=== PATIENT | female | born 1960 | race Two or more races ===

== ENCOUNTER → 2016-08-11 | Outpatient (CLI) | payer BC ==
--- NOTE | 2016-08-12 08:11 | WOMENS IMAGING REPORT ---
EXAM DESCRIPTION: BILAT SCREENING MAMMO W/CAD COMPLETED DATE/TIME: 08/11/2016 10:42 am REASON FOR STUDY: Z12.31 ROUTINE SCREENING MAMMO Z12.31 ENCNTR SCREEN MAMMOGRAM FOR MALIGNANT NEOPL ASM OF [place] COMPARISON: 2014 TECHNIQUE: Standard craniocaudal and mediolateral oblique views of each breast recorded using [employer] l acquisition. LIMITATIONS: None. FINDINGS: No masses, calcifications or architectural distortion. No areas of suspicion. Read with the assistance of CAD. .[facility] - R2 Cenova Version 1.3 .[facility] - R2 Cenova Version 1.3 .[facility] - R2 Cenova Version 2.4 .[facility] [place] - R2 Cenova Version 2.4 .COUNT INCLUDES THE [facility] - R2 [employer] Underwriter Version 9.2 BREAST DENSITY: b. There are scattered areas of fibroglandular density. BIRAD: 1 NEGATIVE RECOMMENDATION: ROUTINE SCREENING COMMENT: PATIENT NOTIFIED BY LETTER. The [employer] recommends an annual screening mammogram for women aged 40 years or over. Each patient will receive a reminder prior to the anniversary date of her mammogram. The [employer] (ACR) has developed recommendations for screening MRI of the breast s in certain patient populations, to be used in conjunction with mammography. Breast MRI surveillanc e may be appropriate for women with more than 20% lifetime risk of developing breast cancer as deter mined by genetic testing, significant family history of the disease, or history of mantle radiation f or Hodgkins Disease. ACR Practice Guidelines 2008. TECHNICAL DOCUMENTATION: FINDING NUMBER: (1) ASSESSMENT: (1) JOB ID: [id number] [employer]- All Rights Reserved
== END ==
LOC: WI 10:18
PROVIDERS: ATTEND Family Medicine
DX: Z12.31 Encounter for screening mammogram for malignant neoplasm of breast (principal)
CPT/HCPCS: 77067; G0202

== ENCOUNTER 2019-06-16 15:02 | Inpatient (IN) | payer BC ==
[2019-06-16] MEDS ORDERED: ACETAMINOPHEN 325 MG TABLET PO PRN (15:54)
[2019-06-16] MEDS ORDERED: NORMAL SALINE 1000 ML 1,000 ML IV PRN (15:54)
--- NOTE | 2019-06-16 16:54 | PDOC H&P ---
History of Present Illness Admission Date/PCP: 06/16/19 15:02 HARLEY BECERRA MD Patient complains of: Right flank pain acute renal failure History of Present Illness: DIAMOND BECERRA is a 58 year old female atient is complaining of significant right-sided flank pain radiating to the pelvic area since last 1 week is today's patient is feeling worse feeling nausea vomiting Patient also tried the Cipro Patient urine culture was negative Patient's today's urine persistence with some blood Patient denied any fever or chills Patient have a history of a renal cyst in the past Denied any history of kidney stone Patient's went to the [facility] and patient's creatinine was 3.42 patient's last creatinine was 0.[address] scan of the abdomen pelvis without contrast did not show any acute finding Past Surgical History Past Surgical History: Reports: Hysterectomy Social History Information Source: Patient Smoking Status: Never Smoker Electronic Cigarette use?: No Frequency of Alcohol Use: Social Hx Recreational Drug Use: No Hx Prescription Drug Abuse: No Family History Family History: None Parental Family History Reviewed: Yes Children Family History Reviewed: Yes Sibling(s) Family History Reviewed.: Yes Medication/Allergy Allergies/Adverse Reactions: No Known Allergies Allergy (Unverified 06/16/19 16:23) Review of Systems Constitutional: PRESENT: chills. ABSENT: fever(s), headache(s), weight gain, weight loss Eyes: ABSENT: visual disturbances Ears: ABSENT: hearing changes Cardiovascular: ABSENT: chest pain, dyspnea on exertion, edema, orthropnea, palpitations Respiratory: ABSENT: cough, hemoptysis Gastrointestinal: PRESENT: abdominal pain, nausea. ABSENT: constipation, diarrhea, hematemesis, hematochezia, vomiting Genitourinary: PRESENT: difficulty urinating. ABSENT: dysuria, hematuria Musculoskeletal: ABSENT: joint swelling Integumentary: ABSENT: rash, wounds Neurological: ABSENT: abnormal gait, abnormal speech, confusion, dizziness, focal weakness, syncope Psychiatric: ABSENT: anxiety, depression, homidical ideation, suicidal ideation Endocrine: ABSENT: cold intolerance, heat intolerance, menstrual abnormalities, polydipsia, polyuria Hematologic/Lymphatic: ABSENT: easy bleeding, easy bruising, lymphadenopathy Physical Exam Vital Signs: Intake & Output 06/15/19 06/16/19 06/17/19 06:59 06:59 06:59 Weight 59.421 kg General appearance: PRESENT: no acute distress, well-developed, well-nourished Head exam: PRESENT: atraumatic, normocephalic Eye exam: PRESENT: conjunctiva pink, EOMI, PERRLA. ABSENT: scleral icterus Ear exam: PRESENT: normal external ear exam Mouth exam: PRESENT: moist, tongue midline Neck exam: PRESENT: full ROM. ABSENT: carotid bruit, JVD, lymphadenopathy, thyromegaly Respiratory exam: PRESENT: clear to auscultation sunitha Cardiovascular exam: PRESENT: RRR. ABSENT: diastolic murmur, rubs, systolic murmur Pulses: PRESENT: normal dorsalis pedis pul, +2 pedal pulses bilateral Vascular exam: PRESENT: normal capillary refill GI/Abdominal exam: PRESENT: normal bowel sounds, soft. ABSENT: distended, guarding, mass, organolmegaly, rebound, tenderness Additonal comments: Right CVA tenderness Rectal exam: PRESENT: deferred Extremities exam: ABSENT: pedal edema Musculoskeletal exam: PRESENT: ambulatory Neurological exam: PRESENT: alert, awake, oriented to person, oriented to place, oriented to time, oriented to situation, CN II-XII grossly intact. ABSENT: motor sensory deficit Psychiatric exam: PRESENT: appropriate affect, normal mood. ABSENT: homicidal ideation, suicidal ideation Skin exam: PRESENT: dry, intact, warm. ABSENT: cyanosis, rash Assessment & Plan - Diagnosis (1) Right flank pain Is this a current diagnosis for this admission?: Yes Plan: Patient CT scan of the abdomen pelvis is negative patient of acute renal failure with the right-sided CVA tenderness will get the blood culture urine cultures will rule out any pyelonephritis versus other etiology Patient urine culture in the office was all negative But again patient start the Cipro last week (2) Acute renal failure Qualifiers: Acute renal failure type: unspecified Qualified Code(s): N17.9 - Acute kidney failure, unspecified Is this a current diagnosis for this admission?: Yes Plan: We will start the patient on IV fluid consult to Dr. Hakeem Garcia for further evaluations - Time Time Spent: 30 to 50 Minutes Medications reviewed and adjusted accordingly: Yes Anticipated discharge: Home Within: Other - Inpatient Certification Based on my medical assessment, after consideration of the patient's comorbidities, presenting symptoms, or acuity I expect that the services needed warrant INPATIENT care.: Yes I certify that my determination is in accordance with my understanding of Medicare's requirements for reasonable and necessary INPATIENT services [42 CFR 412.3e].: Yes Medical Necessity: Failure to Improve With Outpatient Therapy, Need Close Monitoring Due to Risk of Patient Decompensation, Need For IV Fluids, Need for IV Antibiotics Post Hospital Care: D/C [employer] Ste[employer] Operator Documentation - Plan Summary Plan Summary: Admit the patient's in the hospital Start on IV antibiotics The blood culture urine cultures get the ultrasound Discussed with the patient and the and the daughter regarding the patient's current conditions
[2019-06-16] MEDS: OXYCODONE-ACETAMINOPHEN 5-325 MG TABLET PO PRN (17:49)
[2019-06-16] MEDS ORDERED: CEFTRIAXONE 1 GM/D5W RTU 1 GM/50 ML RTUPB IV SCH (18:00)
[2019-06-16] MEDS ORDERED: MORPHINE SULFATE 10 MG/ML INJ IV PRN (19:39)
[2019-06-16] MEDS: FAMOTIDINE 20 MG TABLET PO SCH (21:07)
[2019-06-16] MEDS: NORMAL SALINE 1000 ML 1,000 ML IV PRN (21:07)
[2019-06-16 21:17] LABS: APPEARANCE,URINE CLEAR; BILIRUBIN,URINE NEGATIVE (NEGATIVE); COLOR,URINE STRAW; GLUCOSE, URINE NEGATIVE (NEGATIVE); KETONES,URINE NEGATIVE (NEGATIVE); LEUKOCYTE ESTERASE,URINE NEGATIVE (NEGATIVE); NITRITE,URINE NEGATIVE (NEGATIVE); PROTEIN,URINE NEGATIVE (NEGATIVE); URINE SPECIFIC GRAVITY 1.008; UROBILINOGEN,URINE NEGATIVE mg/dL (<2.0)
[2019-06-16] MEDS ORDERED: FAMOTIDINE 20 MG TABLET PO SCH (22:00)
[2019-06-17] MEDS: NORMAL SALINE 1000 ML 1,000 ML IV PRN (03:53)
[2019-06-17] MEDS: OXYCODONE-ACETAMINOPHEN 5-325 MG TABLET PO PRN (03:53)
[2019-06-17 05:45] LABS: ABSOLUTE EOSINOPHILS # (AUTO) 0.1 10^3/uL (0.0-0.6); ABSOLUTE LYMPHOCYTES (AUTO) 1.6 10^3/uL (0.5-4.7); ABSOLUTE MONOCYTES (AUTO) 0.5 10^3/uL (0.1-1.4); ABSOLUTE NEUT (AUTO) 6.1 10^3/uL (1.7-8.2); BASOPHILS % (AUTO) 0.3 % (0-2); EOSINOPHILS % (AUTO) 1.1 % (0-6); HEMATOCRIT 36.3 % (36.0-47.0); HEMOGLOBIN 12.3 g/dL (12.0-15.5); LYMPHOCYTES % (AUTO) 18.9 % (13-45); MEAN CORPUSCULAR HEMOGLOBIN 29.8 pg (27.0-33.4); MEAN CORPUSCULAR HGB CONC 33.9 g/dL (32.0-36.0); MEAN CORPUSCULAR VOLUME 88 fl (80-97); MONOCYTES % (AUTO) 6.4 % (3-13); PLATELET COUNT 207 10^3/uL (150-450); RED BLOOD COUNT 4.13 10^6/uL (3.72-5.28); RED CELL DISTRIBUTION WIDTH 12.4 % (11.5-14.0); SEGMENTED NEUTROPHILS % (AUTO) 73.3 % (42-78); TOTAL CELLS COUNTED % (AUTO) 100 %; WHITE BLOOD COUNT 8.4 10^3/uL (4.0-10.5)
[2019-06-17 05:54] LABS: ALKALINE PHOSPHATASE 63 U/L (38-126); ANION GAP 9 (5-19); ASPARTATE AMINO TRANSFERASE 27 U/L (14-36); BILIRUBIN,DIRECT 0.1 mg/dL (0.0-0.4); BILIRUBIN,TOTAL 0.4 mg/dL (0.2-1.3); BLOOD UREA NITROGEN 28 mg/dL (7-20); CALCIUM 8.3 mg/dL (8.4-10.2); CARBON DIOXIDE 23 mmol/L (22-30); CHLORIDE 111 mmol/L (98-107); GLUCOSE 84 mg/dL (75-110); TOTAL PROTEIN 5.5 g/dL (6.3-8.2)
[2019-06-17] MEDS: ONDANSETRON HCL INJ/PF 4 MG/2 ML SDV IV PRN (07:01)
--- NOTE | 2019-06-17 08:29 | RADIOLOGY REPORT (SQ) ---
EXAM DESCRIPTION: U/S ABDOMEN COMPLETE W/DOPPLER COMPLETED DATE/TIME: 06/17/2019 7:02 am REASON FOR STUDY: abdominal pain COMPARISON: None. TECHNIQUE: Dynamic and static grayscale images acquired of the abdomen and recorded on PACS. Additio nal selected color Doppler and spectral images recorded. Note: Study does not meet criteria for complete doppler/duplex scan LIMITATIONS: None. FINDINGS: PANCREAS: No masses. Visualized pancreatic duct normal caliber. LIVER: No discrete solid mass. 3.4 cm right hepatic lobe cyst. No intrahepatic ductal dilation. No rmal size and echogenicity. LIVER VASCULATURE: Normal directional flow of the main portal vein and hepatic veins. GALLBLADDER: No stones. Normal wall thickness. No pericholecystic fluid. ULTRASOUND-DETECTED BORDEN'S SIGN: Negative. INTRAHEPATIC DUCTS AND COMMON DUCT: CBD and intrahepatic ducts normal caliber. No filling defects. INFERIOR VENA CAVA: Normal flow. AORTA: No aneurysm. RIGHT KIDNEY: Normal in size measuring 10.8 cm. Normal echogenicity. No solid or suspicious mass es. No hydronephrosis. No calcifications. LEFT KIDNEY: Normal in size measuring 10.4 cm. Normal echogenicity. No solid or suspicious brianna s. No hydronephrosis. No calcifications. SPLEEN: Normal in size measuring 8.7 cm. No solid masses. PERITONEAL AND PLEURAL SPACES: No ascites or effusions. OTHER: No other significant finding. IMPRESSION: 3.4 cm right Hepatic cyst. Otherwise, unremarkable abdominal ultrasound. TECHNICAL DOCUMENTATION: JOB ID: [id number] [employer]- All Rights Reserved Reading location - IP/workstation name: [email or web address]
--- NOTE | 2019-06-17 09:42 | RADIOLOGY REPORT (SQ) ---
EXAM DESCRIPTION: CT LUMBAR SPINE WITHOUT COMPLETED DATE/TIME: 06/17/2019 9:10 am REASON FOR STUDY: back pain COMPARISON: 06/16/2019 TECHNIQUE: Axial images acquired through the lumbar spine without intravenous contrast. Images revi ewed with lung, soft tissue and bone windows. Reconstructed coronal and sagittal MPR images reviewed . All images stored on PACS. All CT scanners at this facility use dose modulation, iterative reconstruction, and/or weight based d osing when appropriate to reduce radiation dose to as low as reasonably achievable (ALARA). [facility]: Dose Right [facility]: CareDose [facility]: Dose Right [facility]: Teradose 4D [facility]: [employer] RADIATION DOSE: CT Rad equipment meets quality standard of care and radiation dose reduction techniq ues were employed. CTDIvol: 6.9 mGy. DLP: 193 mGy-cm. mGy. LIMITATIONS: None. FINDINGS: SEGMENTATION: 6 foy-tyl-hzoeskl vertebral bodies. Partial sacralization of the L6 vertebr al body with pseudoarthrosis on the right and associated subchondral sclerosis and osteophytosis. ALIGNMENT: Minimal grade 1 retrolisthesis of L1 on L2 VERTEBRAL BODIES: No fractures. No dislocation. No acute findings. DISCS: Tiny disc bulge at L1-2 and L4-5. No significant spinal canal stenosis. No significant neura l foraminal narrowing. FACETS, PEDICLES, TRANSVERSE PROCESSES: No evidence of pars defect or facet dislocation. No pedicle fracture. No significant lumbar facet arthropathy. HARDWARE: None in the spine. VISUALIZED RIBS: No fractures. SOFT TISSUES: No significant or acute finding in adjacent soft tissues. OTHER: No other significant finding. IMPRESSION: 1. NO EVIDENCE OF ACUTE BONY ABNORMALITY OF THE LUMBAR SPINE. 2. MINIMAL GRADE 1 RETROLISTHESIS OF L1 ON L2. 3. 6 [id number] LUMBAR VERTEBRAL BODIES. PARTIAL SACRALIZATION OF THE L6 VERTEBRAL BODY WITH P SEUDOARTHROSIS ON THE RIGHT AND ASSOCIATED DEGENERATIVE CHANGE. TECHNICAL DOCUMENTATION: JOB ID: [id number] Quality ID # [id number]: Final reports with documentation of one or more dose reduction techniques (e.g., Au tomated exposure control, adjustment of the mA and/or kV according to patient size, use of iterative reconstruction technique) 2010 [employer]- All Rights Reserved Reading location - IP/workstation name: [email or web address]
[2019-06-17] MEDS: LIDOCAINE 5% (700 MG) TRANSDERMAL ADH..PATCH TP SCH (10:30)
[2019-06-17] MEDS: DOCUSATE SODIUM 100 MG CAPSULE PO SCH (10:30)
--- NOTE | 2019-06-17 11:34 | RADIOLOGY REPORT (SQ) ---
EXAM DESCRIPTION: BONE SURVEY COMPLETE COMPLETED DATE/TIME: 06/17/2019 9:29 am REASON FOR STUDY: back pain/r/o mm COMPARISON: None. TECHNIQUE: Images of the axial and proximal appendicular skeleton are obtained, along with lateral s kull and frontal chest films. LIMITATIONS: None. FINDINGS: AP CHEST: No bony findings. Lungs are clear. LATERAL SKULL: No worrisome bone lesions. AP BOTH HUMERI: No worrisome bone lesions. TWO-VIEW LUMBAR SPINE: No worrisome bone lesions. TWO-VIEW THORACIC SPINE: No worrisome bone lesions. Anterolisthesis of L5 on S1. AP PELVIS: No worrisome bone lesions. AP BOTH FEMURS: No worrisome bone lesions. OTHER: No other significant finding. IMPRESSION: No worrisome bone lesions. Anterolisthesis of L5 on S1. TECHNICAL DOCUMENTATION: JOB ID: [id number] [employer]- All Rights Reserved Reading location - IP/workstation name: [email or web address]
--- NOTE | 2019-06-17 11:34 | PDOC PROGRESS REPORT ---
Subjective Progress Note for:: 06/17/19 Subjective:: Patient is still complaining of right flank pain Is tried the Percocet which helped but making nauseating and feeling dizzy Patient denied any abdominal pain Patient's denied any constipation's problems Is feeling chills No fever no white count Patient ultrasound of the abdomen and pelvis negative for acute finding except hepatic cyst Patient CT of the lumbar spine is negative for any acute findings except some arthritis changes Patient had a colonoscopy was done in 2008 due to the area anemia , Total hysterectomy Patient's brother have a history of the kidney cancer She is denied any chest pain no short of breath Reason For Visit: RT FLANK PAIN/RENAL FAILURE Physical Exam Vital Signs: Temp Pulse Resp BP Pulse Ox 98.8 F 60 20 121/54 L 99 06/17/19 00:02 06/17/19 00:02 06/17/19 00:02 06/17/19 00:02 06/17/19 00:02 Intake & Output 06/16/19 06/17/19 06/18/19 06:59 06:59 06:59 Intake Total 727 Output Total 400 Balance 327 Weight 59.3 kg General appearance: PRESENT: no acute distress, well-developed, well-nourished Head exam: PRESENT: atraumatic, normocephalic Eye exam: PRESENT: conjunctiva pink, EOMI, PERRLA. ABSENT: scleral icterus Ear exam: PRESENT: normal external ear exam Mouth exam: PRESENT: moist, tongue midline Neck exam: PRESENT: full ROM. ABSENT: carotid bruit, JVD, lymphadenopathy, thyromegaly Respiratory exam: PRESENT: clear to auscultation sunitha Cardiovascular exam: PRESENT: RRR. ABSENT: diastolic murmur, rubs, systolic murmur Pulses: PRESENT: normal dorsalis pedis pul, +2 pedal pulses bilateral Vascular exam: PRESENT: normal capillary refill GI/Abdominal exam: PRESENT: normal bowel sounds, soft. ABSENT: distended, guarding, mass, organolmegaly, rebound, tenderness Additonal comments: Right CVA tenderness Rectal exam: PRESENT: deferred Extremities exam: ABSENT: pedal edema Musculoskeletal exam: PRESENT: ambulatory Neurological exam: PRESENT: alert, awake, oriented to person, oriented to place, oriented to time, oriented to situation, CN II-XII grossly intact. ABSENT: motor sensory deficit Psychiatric exam: PRESENT: appropriate affect, normal mood. ABSENT: homicidal ideation, suicidal ideation Skin exam: PRESENT: dry, intact, warm. ABSENT: cyanosis, rash Results Laboratory Results: 06/17/19 04:44 06/17/19 04:44 06/16/19 06/17/19 06/17/19 20:48 04:44 04:44 WBC 8.4 RBC 4.13 Hgb 12.3 Hct 36.3 MCV 88 MCH 29.8 MCHC 33.9 RDW 12.4 Plt Count 207 Seg Neutrophils % 73.3 Sodium 143.0 Potassium 4.0 Chloride 111 H Carbon Dioxide 23 Anion Gap 9 BUN 28 H Creatinine 3.00 H Est GFR ( Amer) 20 L Glucose 84 Calcium 8.3 L Magnesium 2.3 Total Bilirubin 0.4 AST 27 Alkaline Phosphatase 63 Total Protein 5.5 L Albumin 3.0 L Urine Color STRAW Urine Appearance CLEAR Urine pH 5.0 Ur Specific [place] 1.008 Urine Protein NEGATIVE Urine Glucose (UA) NEGATIVE Urine Ketones NEGATIVE Urine Blood SMALL H Urine Nitrite NEGATIVE Ur Leukocyte Esterase NEGATIVE Urine WBC (Auto) 3 Urine RBC (Auto) 1 Impressions: Abdomen Ultrasound 06/17/19 00:00 IMPRESSION: 3.4 cm right Hepatic cyst. Otherwise, unremarkable abdominal ultrasound. Lumbar Spine CT 06/17/19 00:00 IMPRESSION: 1. NO EVIDENCE OF ACUTE BONY ABNORMALITY OF THE LUMBAR SPINE. 2. MINIMAL GRADE 1 RETROLISTHESIS OF L1 ON L2. 3. 6 COX-DFI-CBYIGYS LUMBAR VERTEBRAL BODIES. PARTIAL SACRALIZATION OF THE L6 VERTEBRAL BODY WITH PSEUDOARTHROSIS ON THE RIGHT AND ASSOCIATED DEGENERATIVE CHANGE. Assessment & Plan - Diagnosis (1) Right flank pain Is this a current diagnosis for this admission?: Yes Plan: Patient ultrasound is all negative's will wait for the urine cultures blood cultures continues to IV Rocephin (2) Acute renal failure Qualifiers: Acute renal failure type: unspecified Qualified Code(s): N17.9 - Acute kidney failure, unspecified Is this a current diagnosis for this admission?: Yes Plan: Will continues the IV fluid will wait for Dr. Garcia will do some immunology work-up - Time Time Spent with patient: 15-24 minutes Level of Care: MEDICAL Medications reviewed and adjusted accordingly: Yes Anticipated discharge: Home Within: Other - Plan Summary Plan Summary: Continues IV fluid continues IV Rocephin will wait for the nephrology consult
--- NOTE | 2019-06-17 13:00 | PDOC CONSULTATION ---
Consultation Consult Date: 06/17/19 Provider Consulted: Gómez ALLEN Consult reason:: YANN History of Present Illness Admission Date/PCP: 06/16/19 15:54 HARLEY BECERRA MD History of Present Illness: DIAMOND BECERRA is a 58 year old female with an unremarkable past medical history comes to the hospital with almost a week history of right flank pain. The pain began around before the last weekend and patient called into her primary care and said she had a UTI and was prescribed Cipro. The following Thursday the patient had persistent right flank pain and was seen in the office and labs and urine analysis were all done/ It did not show leukocytosis but was positive for possible UTI. However cultures of the urine came back negative. The patient took almost 7 days of Cipro but had persistent flank pain which is more anterior now. She admits to having some shaking chills initially but no history of uche fever. No history of any hematuria. No history of passing any fleshy bits. She took only one ibuprofen during these days of pain. She is not a frequent NSAID user. She also gives a one-week history of poor appetite including poor fluid intake. She had couple of episodes of nausea and vomiting on the day prior to admission. Labs done prior to admission showed that the creatinine was 3.4 compared to her previous creatinine few months ago at 0.6. Today her creatinine is down to 3.0. She had a noncontrasted CT scan of the abdomen and pelvis which was unremarkable and there is no features of any obstruction or stones. Since admission she has been begun on IV fluids and IV antibiotics and the pain seems to be somewhat better and now is more localized towards the lower pelvic area in the midline. No history of dysuria or hematuria. Her bowels are regular. She has had hysterectomy and has had no periods for a long time. Past Medical History Psychiatric Medical History: Denies: Depression Past Surgical History Past Surgical History: Reports: Hysterectomy Social History Smoking Status: Never Smoker Electronic Cigarette use?: No Frequency of Alcohol Use: Social Hx Recreational Drug Use: No Hx Prescription Drug Abuse: No Family History Parental Family History Reviewed: Yes - Negative for CKD Children Family History Reviewed: No Sibling(s) Family History Reviewed.: No Medication/Allergy Home Medications: No Home Medications 06/16/19 Allergies/Adverse Reactions: No Known Allergies Allergy (Unverified 06/16/19 16:23) Review of Systems Constitutional: PRESENT: anorexia, chills. ABSENT: fatigue, fever(s), headache(s), night sweats, weakness Nose, Mouth, and Throat: ABSENT: mouth pain, sore throat Cardiovascular: ABSENT: chest pain, dyspnea on exertion, edema, orthropnea, palpitations Gastrointestinal: PRESENT: abdominal pain - Right flank, nausea, vomiting. ABSENT: bloating, constipation, diarrhea, dysphagia, heartburn, hematemesis, hematochezia Genitourinary: ABSENT: difficulty urinating, dysuria, hematuria Integumentary: ABSENT: rash Neurological: ABSENT: abnormal speech, frequent falls, lack of coordination, memory loss Hematologic/Lymphatic: ABSENT: easy bruising Physical Exam Vital Signs: Temp Pulse Resp BP Pulse Ox 98.8 F 60 20 121/54 L 99 06/17/19 00:02 06/17/19 00:02 06/17/19 00:02 06/17/19 00:02 06/17/19 00:02 Intake & Output 06/16/19 06/17/19 06/18/19 06:59 06:59 06:59 Intake Total 727 Output Total 400 Balance 327 Weight 59.3 kg General appearance: PRESENT: no acute distress Respiratory exam: PRESENT: clear to auscultation sunitha. ABSENT: crackles Cardiovascular exam: PRESENT: +S1, +S2 GI/Abdominal exam: PRESENT: normal bowel sounds, soft. ABSENT: organomegaly, tenderness - Her right renal angle was nontender Extremities exam: ABSENT: pedal edema Neurological exam: PRESENT: alert, awake, oriented to person, oriented to place Psychiatric exam: PRESENT: appropriate affect Skin exam: ABSENT: cyanosis, erythema, mottled, rash Results Laboratory Results: 06/17/19 04:44 06/17/19 04:44 06/16/19 06/17/19 06/17/19 20:48 04:44 04:44 WBC 8.4 RBC 4.13 Hgb 12.3 Hct 36.3 MCV 88 MCH 29.8 MCHC 33.9 RDW 12.4 Plt Count 207 Seg Neutrophils % 73.3 Sodium 143.0 Potassium 4.0 Chloride 111 H Carbon Dioxide 23 Anion Gap 9 BUN 28 H Creatinine 3.00 H Est GFR ( Amer) 20 L Glucose 84 Calcium 8.3 L Magnesium 2.3 Total Bilirubin 0.4 AST 27 Alkaline Phosphatase 63 Total Protein 5.5 L Albumin 3.0 L Urine Color STRAW Urine Appearance CLEAR Urine pH 5.0 Ur Specific [place] 1.008 Urine Protein NEGATIVE Urine Glucose (UA) NEGATIVE Urine Ketones NEGATIVE Urine Blood SMALL H Urine Nitrite NEGATIVE Ur Leukocyte Esterase NEGATIVE Urine WBC (Auto) 3 Urine RBC (Auto) 1 Impressions: Abdomen Ultrasound 06/17/19 00:00 IMPRESSION: 3.4 cm right Hepatic cyst. Otherwise, unremarkable abdominal ultrasound. Lumbar Spine CT 06/17/19 00:00 IMPRESSION: 1. NO EVIDENCE OF ACUTE BONY ABNORMALITY OF THE LUMBAR SPINE. 2. MINIMAL GRADE 1 RETROLISTHESIS OF L1 ON L2. 3. 6 [id number] LUMBAR VERTEBRAL BODIES. PARTIAL SACRALIZATION OF THE L6 VERTEBRAL BODY WITH PSEUDOARTHROSIS ON THE RIGHT AND ASSOCIATED DEGENERATIVE CHANGE. Skeletal Survey 06/17/19 00:00 IMPRESSION: No worrisome bone lesions. Anterolisthesis of L5 on S1. Assessment & Plan - Diagnosis (1) Pyelonephritis Plan: Right. Clinically she has features of history of acute right pyelonephritis, partially treated given the fact that she was put on p.o. antibiotics before cultures were done. Her urine cultures turned out to be negative most likely because of partially treated with Cipro. At this moment I would recommend conversion of IV antibiotics from Rocephin to ceftazidime 1 g twice daily and continuing on IV fluid resuscitation. I would expect complete recovery as seen now. (2) Acute renal failure Qualifiers: Acute renal failure type: unspecified Qualified Code(s): N17.9 - Acute kidney failure, unspecified Is this a current diagnosis for this admission?: Yes Plan: In the setting of right pyelonephritis and dehydration. Continue on IV fluids and antibiotics as mentioned earlier. I expect a complete recovery as is seen now. (3) Right flank pain Is this a current diagnosis for this admission?: Yes Plan: Improving. Continue current guidelines as mentioned earlier.
[2019-06-17] MEDS: CEFTAZIDIME PENTAHYDRATE 1 GM in DEXTROSE 5%-WATER 50 ML IV SCH (21:42)
[2019-06-17] MEDS: FAMOTIDINE 20 MG TABLET PO SCH (21:42)
[2019-06-18] MEDS: OXYCODONE-ACETAMINOPHEN 5-325 MG TABLET PO PRN (00:24)
[2019-06-18] MEDS: NORMAL SALINE 1000 ML 1,000 ML IV PRN ×3 (05:14→18:57)
[2019-06-18 05:36] LABS: ABSOLUTE EOSINOPHILS # (AUTO) 0.1 10^3/uL (0.0-0.6); ABSOLUTE LYMPHOCYTES (AUTO) 1.5 10^3/uL (0.5-4.7); ABSOLUTE MONOCYTES (AUTO) 0.4 10^3/uL (0.1-1.4); ABSOLUTE NEUT (AUTO) 5.4 10^3/uL (1.7-8.2); BASOPHILS % (AUTO) 0.2 % (0-2); EOSINOPHILS % (AUTO) 1.1 % (0-6); HEMATOCRIT 34.4 % (36.0-47.0); HEMOGLOBIN 11.8 g/dL (12.0-15.5); LYMPHOCYTES % (AUTO) 20.7 % (13-45); MEAN CORPUSCULAR HEMOGLOBIN 29.8 pg (27.0-33.4); MEAN CORPUSCULAR HGB CONC 34.4 g/dL (32.0-36.0); MEAN CORPUSCULAR VOLUME 87 fl (80-97); MONOCYTES % (AUTO) 4.8 % (3-13); PLATELET COUNT 202 10^3/uL (150-450); RED BLOOD COUNT 3.97 10^6/uL (3.72-5.28); RED CELL DISTRIBUTION WIDTH 12.3 % (11.5-14.0); SEGMENTED NEUTROPHILS % (AUTO) 73.2 % (42-78); TOTAL CELLS COUNTED % (AUTO) 100 %; WHITE BLOOD COUNT 7.3 10^3/uL (4.0-10.5)
[2019-06-18 06:11] LABS: ANION GAP 7 (5-19); BLOOD UREA NITROGEN 22 mg/dL (7-20); CALCIUM 8.5 mg/dL (8.4-10.2); CARBON DIOXIDE 22 mmol/L (22-30); CHLORIDE 113 mmol/L (98-107); GLUCOSE 82 mg/dL (75-110); POTASSIUM 3.9 mmol/L (3.6-5.0)
[2019-06-18] MEDS: ONDANSETRON HCL INJ/PF 4 MG/2 ML SDV IV PRN (07:41)
[2019-06-18] MEDS: DOCUSATE SODIUM 100 MG CAPSULE PO SCH (09:13)
[2019-06-18] MEDS: CEFTAZIDIME PENTAHYDRATE 1 GM in DEXTROSE 5%-WATER 50 ML IV SCH ×2 (09:15→22:58)
[2019-06-18] MEDS: LIDOCAINE 5% (700 MG) TRANSDERMAL ADH..PATCH TP SCH (09:15)
--- NOTE | 2019-06-18 17:48 | PDOC PROGRESS REPORT ---
Subjective Progress Note for:: 06/18/19 Subjective:: Patient reported improvement in her flank pain. No fever or chills. Episode of nausea resolved with IV Zofran administration. Reason For Visit: RT FLANK PAIN/RENAL FAILURE Physical Exam Vital Signs: Temp Pulse Resp BP Pulse Ox 97.6 F 70 17 114/52 L 100 06/18/19 16:39 06/18/19 16:39 06/18/19 16:39 06/18/19 16:39 06/18/19 16:39 Intake & Output 06/17/19 06/18/19 06/19/19 06:59 06:59 06:59 Intake Total 727 2237 1000 Output Total 400 Balance 327 2237 1000 Weight 59.3 kg 62.5 kg General appearance: PRESENT: no acute distress Head exam: PRESENT: atraumatic, normocephalic Eye exam: PRESENT: conjunctiva pink, EOMI, PERRLA. ABSENT: scleral icterus Ear exam: PRESENT: normal external ear exam Mouth exam: PRESENT: moist Respiratory exam: PRESENT: clear to auscultation sunitha Cardiovascular exam: PRESENT: RRR. ABSENT: diastolic murmur, rubs, systolic murmur Vascular exam: ABSENT: pallor GI/Abdominal exam: PRESENT: normal bowel sounds, soft. ABSENT: distended, guarding, mass, organolmegaly, rebound, tenderness Extremities exam: ABSENT: pedal edema Neurological exam: PRESENT: alert, awake, oriented to person, oriented to place, oriented to time, oriented to situation, CN II-XII grossly intact. ABSENT: motor sensory deficit Psychiatric exam: PRESENT: appropriate affect, normal mood. ABSENT: homicidal ideation, suicidal ideation Skin exam: PRESENT: dry, warm Results Laboratory Results: 06/18/19 05:22 06/18/19 05:22 06/18/19 06/18/19 05:22 05:22 WBC 7.3 RBC 3.97 Hgb 11.8 L Hct 34.4 L MCV 87 MCH 29.8 MCHC 34.4 RDW 12.3 Plt Count 202 Seg Neutrophils % 73.2 Sodium 141.7 Potassium 3.9 Chloride 113 H Carbon Dioxide 22 Anion Gap 7 BUN 22 H Creatinine 2.09 H Est GFR ( Amer) 30 L Glucose 82 Calcium 8.5 Magnesium 2.2 Impressions: Abdomen Ultrasound 06/17/19 00:00 IMPRESSION: 3.4 cm right Hepatic cyst. Otherwise, unremarkable abdominal ultrasound. Lumbar Spine CT 06/17/19 00:00 IMPRESSION: 1. NO EVIDENCE OF ACUTE BONY ABNORMALITY OF THE LUMBAR SPINE. 2. MINIMAL GRADE 1 RETROLISTHESIS OF L1 ON L2. 3. 6 [id number] LUMBAR VERTEBRAL BODIES. PARTIAL SACRALIZATION OF THE L6 VERTEBRAL BODY WITH PSEUDOARTHROSIS ON THE RIGHT AND ASSOCIATED DEGENERATIVE CHANGE. Skeletal Survey 06/17/19 00:00 IMPRESSION: No worrisome bone lesions. Anterolisthesis of L5 on S1. Assessment & Plan - Diagnosis (1) Acute renal failure Qualifiers: Acute renal failure type: unspecified Qualified Code(s): N17.9 - Acute kidney failure, unspecified Is this a current diagnosis for this admission?: Yes Plan: Continue IV fluid N/S support at 100 ml/hr after completion of her 3rd liter bag administration. Monitor renal indices. (2) Pyelonephritis Is this a current diagnosis for this admission?: Yes Plan: Maintain in IV Fortaz coverage. (3) Right flank pain Is this a current diagnosis for this admission?: Yes Plan: Improvement with ongoing treatment. - Time Time Spent with patient: 25-34 minutes Level of Care: MEDICAL Medications reviewed and adjusted accordingly: Yes Anticipated discharge: Home Within: Other - Inpatient Certification Based on my medical assessment, after consideration of the patient's comorbidities, presenting symptoms, or acuity I expect that the services needed warrant INPATIENT care.: Yes I certify that my determination is in accordance with my understanding of Medicare's requirements for reasonable and necessary INPATIENT services [42 CFR 412.3e].: Yes Medical Necessity: Significant Comorbidiites Make Outpatient Treatment Too Risky, Need Close Monitoring Due to Risk of Patient Decompensation, Need For IV Fluids, Need for IV Antibiotics, Risk of Complication if Not Cared For in [facility]pi [facility], Risk of Diagnosis Which Will Require Inpatient Eval/Care/Monitoring Post Hospital Care: D/C Theater Technician Documentation - Plan Summary Plan Summary: Continue current medication management. Obtain CBC with diff and BMP in AM.
[2019-06-18] MEDS: FAMOTIDINE 20 MG TABLET PO SCH (22:58)
[2019-06-19 05:22] LABS: ABSOLUTE EOSINOPHILS # (AUTO) 0.1 10^3/uL (0.0-0.6); ABSOLUTE LYMPHOCYTES (AUTO) 1.6 10^3/uL (0.5-4.7); ABSOLUTE MONOCYTES (AUTO) 0.3 10^3/uL (0.1-1.4); ABSOLUTE NEUT (AUTO) 4.5 10^3/uL (1.7-8.2); BASOPHILS % (AUTO) 0.3 % (0-2); EOSINOPHILS % (AUTO) 1.8 % (0-6); HEMATOCRIT 34.5 % (36.0-47.0); HEMOGLOBIN 11.8 g/dL (12.0-15.5); LYMPHOCYTES % (AUTO) 24.3 % (13-45); MEAN CORPUSCULAR HGB CONC 34.3 g/dL (32.0-36.0); MEAN CORPUSCULAR VOLUME 88 fl (80-97); MONOCYTES % (AUTO) 5.3 % (3-13); PLATELET COUNT 201 10^3/uL (150-450); RED BLOOD COUNT 3.94 10^6/uL (3.72-5.28); RED CELL DISTRIBUTION WIDTH 12.5 % (11.5-14.0); SEGMENTED NEUTROPHILS % (AUTO) 68.3 % (42-78); TOTAL CELLS COUNTED % (AUTO) 100 %; WHITE BLOOD COUNT 6.6 10^3/uL (4.0-10.5)
[2019-06-19 05:48] LABS: ANION GAP 6 (5-19); BLOOD UREA NITROGEN 15 mg/dL (7-20); CALCIUM 8.2 mg/dL (8.4-10.2); CARBON DIOXIDE 24 mmol/L (22-30); CHLORIDE 114 mmol/L (98-107); GLUCOSE 85 mg/dL (75-110); POTASSIUM 3.7 mmol/L (3.6-5.0)
[2019-06-19] MEDS: NORMAL SALINE 1000 ML 1,000 ML IV PRN ×2 (06:30→16:59)
[2019-06-19] MEDS: DOCUSATE SODIUM 100 MG CAPSULE PO SCH (09:47)
[2019-06-19] MEDS: CEFTAZIDIME PENTAHYDRATE 1 GM in DEXTROSE 5%-WATER 50 ML IV SCH ×2 (09:47→21:26)
[2019-06-19] MEDS: LIDOCAINE 5% (700 MG) TRANSDERMAL ADH..PATCH TP SCH (09:47)
--- NOTE | 2019-06-19 13:45 | PDOC PROGRESS REPORT ---
Subjective Progress Note for:: 06/19/19 Subjective:: Patient is not using any pain medication administration at this time. Ambulating on the floor. No nausea, vomiting or abdominal pain. No right flank pain. She remain on IV Fortaz coverage. Blood culture is no growth to date. Urine culture grew subclinical growth of gram negative rods. No chest pain or difficulty with breathing. Reason For Visit: RT FLANK PAIN/RENAL FAILURE Physical Exam Vital Signs: Temp Pulse Resp BP Pulse Ox 98.3 F 63 16 133/73 H 97 06/19/19 07:48 06/19/19 07:48 06/19/19 07:48 06/19/19 07:48 06/19/19 07:48 Intake & Output 06/18/19 06/19/19 06/20/19 06:59 06:59 06:59 Intake Total 2237 4784 Balance 2237 4784 Weight 62.5 kg 63.2 kg Physical Exam: General appearance: PRESENT: no acute distress Head exam: PRESENT: atraumatic, normocephalic Eye exam: PRESENT: conjunctiva pink, EOMI, PERRLA. ABSENT: pallor, scleral icterus Ear exam: PRESENT: normal external ear exam Mouth exam: PRESENT: moist Respiratory exam: PRESENT: clear to auscultation sunitha Cardiovascular exam: PRESENT: RRR. ABSENT: diastolic murmur, rubs, systolic murmur GI/Abdominal exam: PRESENT: normal bowel sounds, soft. ABSENT: distended, guarding, mass, organomegaly, rebound, tenderness Extremities exam: ABSENT: pedal edema Neurological exam: PRESENT: alert, awake, oriented to person, oriented to place, oriented to time, oriented to situation, CN II-XII grossly intact. ABSENT: motor sensory deficit Psychiatric exam: PRESENT: appropriate affect, normal mood. ABSENT: homicidal ideation, suicidal ideation Skin exam: PRESENT: dry, warm Results Laboratory Results: 06/19/19 05:03 06/19/19 05:03 06/19/19 06/19/19 05:03 05:03 WBC 6.6 RBC 3.94 Hgb 11.8 L Hct 34.5 L MCV 88 MCH 30.0 MCHC 34.3 RDW 12.5 Plt Count 201 Seg Neutrophils % 68.3 Sodium 143.8 Potassium 3.7 Chloride 114 H Carbon Dioxide 24 Anion Gap 6 BUN 15 Creatinine 1.35 H Est GFR ( Amer) 49 L Glucose 85 Calcium 8.2 L Magnesium 1.8 Impressions: Abdomen Ultrasound 06/17/19 00:00 IMPRESSION: 3.4 cm right Hepatic cyst. Otherwise, unremarkable abdominal ultrasound. Lumbar Spine CT 06/17/19 00:00 IMPRESSION: 1. NO EVIDENCE OF ACUTE BONY ABNORMALITY OF THE LUMBAR SPINE. 2. MINIMAL GRADE 1 RETROLISTHESIS OF L1 ON L2. 3. 6 [id number] LUMBAR VERTEBRAL BODIES. PARTIAL SACRALIZATION OF THE L6 VERTEBRAL BODY WITH PSEUDOARTHROSIS ON THE RIGHT AND ASSOCIATED DEGENERATIVE CHANGE. Skeletal Survey 06/17/19 00:00 IMPRESSION: No worrisome bone lesions. Anterolisthesis of L5 on S1. Assessment & Plan - Diagnosis (1) Acute renal failure Qualifiers: Acute renal failure type: unspecified Qualified Code(s): N17.9 - Acute kidney failure, unspecified Is this a current diagnosis for this admission?: Yes (2) Pyelonephritis Is this a current diagnosis for this admission?: Yes (3) Right flank pain Is this a current diagnosis for this admission?: Yes - Time Time Spent with patient: 25-34 minutes Level of Care: MEDICAL Medications reviewed and adjusted accordingly: Yes Anticipated discharge: Home Within: Other - Inpatient Certification Based on my medical assessment, after consideration of the patient's comorbidities, presenting symptoms, or acuity I expect that the services needed warrant INPATIENT care.: Yes I certify that my determination is in accordance with my understanding of Medicare's requirements for reasonable and necessary INPATIENT services [42 CFR 412.3e].: Yes Medical Necessity: Significant Comorbidiites Make Outpatient Treatment Too Risky, Need Close Monitoring Due to Risk of Patient Decompensation, Need For IV Fluids, Need for IV Antibiotics, Risk of Complication if Not Cared For in Hospital, Risk of Diagnosis Which Will Require Inpatient Eval/Care/Monitoring Post Hospital Care: D/C Mechatronics Technologist Documentation - Plan Summary Plan Summary: Continue current medication management. Consider comparable oral 3rd generation Cephalosporins, i.e. Cefdinir or Cefpodoxime if discharge is a consideration. Her renal indices are improving.
[2019-06-19] MEDS: FAMOTIDINE 20 MG TABLET PO SCH (21:26)
[2019-06-20] MEDS: NORMAL SALINE 1000 ML 1,000 ML IV PRN (03:50)
[2019-06-20 06:23] LABS: ANION GAP 7 (5-19); BLOOD UREA NITROGEN 12 mg/dL (7-20); CALCIUM 8.2 mg/dL (8.4-10.2); CARBON DIOXIDE 24 mmol/L (22-30); CHLORIDE 112 mmol/L (98-107); GLUCOSE 79 mg/dL (75-110); POTASSIUM 3.6 mmol/L (3.6-5.0)
[2019-06-20] MEDS: CEFTAZIDIME PENTAHYDRATE 1 GM in DEXTROSE 5%-WATER 50 ML IV SCH (09:10)
[2019-06-20] MEDS: DOCUSATE SODIUM 100 MG CAPSULE PO SCH (09:15)
[2019-06-20] MEDS: LIDOCAINE 5% (700 MG) TRANSDERMAL ADH..PATCH TP SCH (09:15)
[2019-06-20 11:21] VITALS: BP 143/73
--- NOTE | 2019-06-20 13:15 | PDOC DISCHARGE SUMMARY ---
Impression - Admit/DC Date/PCP Admission Date/Primary Care Provider: 06/16/19 15:54 HARLEY BECERRA MD Discharge Date: 06/20/19 - Discharge Diagnosis (1) Right flank pain Is this a current diagnosis for this admission?: Yes (2) Acute renal failure Is this a current diagnosis for this admission?: Yes (3) Pyelonephritis Is this a current diagnosis for this admission?: Yes - Additional Information Discharge Diet: Regular Discharge Activity: Activity As Tolerated Referrals: HARLEY BECERRA MD [Primary Care Provider] - 06/23/19 2:30 pm (f/u in 1 wk ) Prescriptions: Ciprofloxacin HCl [Cipro 500 mg Tablet] 500 mg PO BID #20 tablet Home Medications: Ciprofloxacin HCl [Cipro 500 mg Tablet] 500 mg PO BID #20 tablet 06/20/19 History of Present Illiness History of Present Illness: DIAMOND BECERRA is a 58 year old female atient is complaining of significant right-sided flank pain radiating to the pelvic area since last 1 week is today's patient is feeling worse feeling nausea vomiting Patient also tried the Cipro Patient urine culture was negative Patient's today's urine persistence with some blood Patient denied any fever or chills Patient have a history of a renal cyst in the past Denied any history of kidney stone Patient's went to the [facility] and patient's creatinine was 3.42 patient's last creatinine was 0.[address] scan of the abdomen pelvis without contrast did not show any acute finding Hospital Course Hospital Course: This is a 58-year-old female admitting in the hospital because of the right flank pain and diagnosed with a right-sided pyelonephritis with a gram-negative organism in the urine was treated outpatient Cipro failed to response Patient's was put on a Fortaz 1 g IV twice a day patient also found acute renal failure with creatinine was 3.42 and patient was started on IV fluid and a CT scan of the abdomen pelvis did not show any acute finding ultrasound of the kidney did not show any acute finding and a CT lumbar spine and other work-up is all negative Patient seen by the nephrology Dr. Garcia and patient's creatinine is back to the normal today patient's p.o. intake is good no more pain no fever no chills white count is also normal Is received the 5-day course of the IV antibiotic and discussed with the Dr. Garcia and suggest to continue Cipro for 10 days because Cipro works better and better penetrate and even the we started the Cipro is respond to the infections because the patient had an admission is the white count was all normal and there is no other abnormality in the imaging study so he think the Cipro should be a works better for the patient instead of cephalosporin and finish the 10 more days Cussed with the patient and the family regarding the all the test plans reports and if any increasing any fever pain needs to follow Following a 1 week repeat the CBC and Chem-7 and urine culture Urine cultures gram-negative organism only 10-20,000 organism Physical Exam Vital Signs: Temp Pulse Resp BP Pulse Ox 97.8 F 50 L 17 143/73 H 96 06/20/19 11:18 06/20/19 11:18 06/20/19 11:18 06/20/19 11:18 06/20/19 11:18 Intake & Output 06/19/19 06/20/19 06/21/19 06:59 06:59 06:59 Intake Total 4784 3248 Balance 4784 3248 Weight 63.2 kg 65.8 kg General appearance: PRESENT: no acute distress, well-developed, well-nourished Head exam: PRESENT: atraumatic, normocephalic Eye exam: PRESENT: conjunctiva pink, EOMI, PERRLA. ABSENT: scleral icterus Ear exam: PRESENT: normal external ear exam Mouth exam: PRESENT: moist, tongue midline Neck exam: ABSENT: carotid bruit, JVD, lymphadenopathy, thyromegaly Respiratory exam: PRESENT: clear to auscultation sunitha. ABSENT: rales, rhonchi, wheezes Cardiovascular exam: PRESENT: RRR. ABSENT: diastolic murmur, rubs, systolic murmur Pulses: PRESENT: normal dorsalis pedis pul Vascular exam: PRESENT: normal capillary refill GI/Abdominal exam: PRESENT: normal bowel sounds, soft. ABSENT: distended, guarding, mass, organolmegaly, rebound, tenderness Rectal exam: PRESENT: deferred Extremities exam: PRESENT: full ROM. ABSENT: calf tenderness, clubbing, pedal edema Neurological exam: PRESENT: alert, awake, oriented to person, oriented to place, oriented to time, oriented to situation, CN II-XII grossly intact. ABSENT: motor sensory deficit Psychiatric exam: PRESENT: appropriate affect, normal mood. ABSENT: homicidal ideation, suicidal ideation Skin exam: PRESENT: dry, intact, warm. ABSENT: cyanosis, rash Results Laboratory Results: WBC 6.6 10^3/uL (4.0-10.5) 06/19/19 05:03 RBC 3.94 10^6/uL (3.72-5.28) 06/19/19 05:03 Hgb 11.8 g/dL (12.0-15.5) L 06/19/19 05:03 Hct 34.5 % (36.0-47.0) L 06/19/19 05:03 MCV 88 fl (80-97) 06/19/19 05:03 MCH 30.0 pg (27.0-33.4) 06/19/19 05:03 MCHC 34.3 g/dL (32.0-36.0) 06/19/19 05:03 RDW 12.5 % (11.5-14.0) 06/19/19 05:03 Plt Count 201 10^3/uL (150-450) 06/19/19 05:03 Lymph % (Auto) 24.3 % (13-45) 06/19/19 05:03 [place] % (Auto) 5.3 % (3-13) 06/19/19 05:03 Eos % (Auto) 1.8 % (0-6) 06/19/19 05:03 Baso % (Auto) 0.3 % (0-2) 06/19/19 05:03 Absolute Neuts (auto) 4.5 10^3/uL (1.7-8.2) 06/19/19 05:03 Absolute Lymphs (auto) 1.6 10^3/uL (0.5-4.7) 06/19/19 05:03 Absolute Monos (auto) 0.3 10^3/uL (0.1-1.4) 06/19/19 05:03 Absolute Eos (auto) 0.1 10^3/uL (0.0-0.6) 06/19/19 05:03 Absolute Basos (auto) 0.0 10^3/uL (0.0-0.2) 06/19/19 05:03 Seg Neutrophils % 68.3 % (42-78) 06/19/19 05:03 Sodium 142.7 mmol/L (137-145) 06/20/19 03:44 Potassium 3.6 mmol/L (3.6-5.0) 06/20/19 03:44 Chloride 112 mmol/L (98-107) H 06/20/19 03:44 Carbon Dioxide 24 mmol/L (22-30) 06/20/19 03:44 Anion Gap 7 (5-19) 06/20/19 03:44 BUN 12 mg/dL (7-20) 06/20/19 03:44 Creatinine 0.77 mg/dL (0.52-1.25) 06/20/19 03:44 Est GFR ( Amer) > 60 (>60) 06/20/19 03:44 Est GFR (MDRD) Non-Af > 60 (>60) 06/20/19 03:44 Glucose 79 mg/dL (75-110) 06/20/19 03:44 Calcium 8.2 mg/dL (8.4-10.2) L 06/20/19 03:44 Magnesium 1.8 mg/dL (1.6-2.3) 06/19/19 05:03 Total Bilirubin 0.4 mg/dL (0.2-1.3) 06/17/19 04:44 Direct Bilirubin 0.1 mg/dL (0.0-0.4) 06/17/19 04:44 Neonat Total Bilirubin Not Reportable 06/17/19 04:44 Neonat Direct Bilirubin Not Reportable 06/17/19 04:44 Neonat Indirect Bili Not Reportable 06/17/19 04:44 AST 27 U/L (14-36) 06/17/19 04:44 ALT 17 U/L (<35) 06/17/19 04:44 Alkaline Phosphatase 63 U/L (38-126) 06/17/19 04:44 Total Protein 5.5 g/dL (6.3-8.2) L 06/17/19 04:44 Albumin 3.0 g/dL (3.5-5.0) L 06/17/19 04:44 Urine Color STRAW 06/16/19 20:48 Urine Appearance CLEAR 06/16/19 20:48 Urine pH 5.0 (5.0-9.0) 06/16/19 20:48 Ur Specific [place] 1.008 06/16/19 20:48 Urine Protein NEGATIVE mg/dL (NEGATIVE) 06/16/19 20:48 Urine Glucose (UA) NEGATIVE mg/dL (NEGATIVE) 06/16/19 20:48 Urine Ketones NEGATIVE mg/dL (NEGATIVE) 06/16/19 20:48 Urine Blood SMALL (NEGATIVE) H 06/16/19 20:48 Urine Nitrite NEGATIVE (NEGATIVE) 06/16/19 20:48 Urine Bilirubin NEGATIVE (NEGATIVE) 06/16/19 20:48 Urine Urobilinogen NEGATIVE mg/dL (<2.0) 06/16/19 20:48 Ur Leukocyte Esterase NEGATIVE (NEGATIVE) 06/16/19 20:48 Urine WBC (Auto) 3 /HPF 06/16/19 20:48 Urine RBC (Auto) 1 /HPF 06/16/19 20:48 Urine Mucus (Auto) RARE /LPF 06/16/19 20:48 Urine Ascorbic Acid NEGATIVE (NEGATIVE) 06/16/19 20:48 Impressions: Abdomen Ultrasound 06/17/19 00:00 IMPRESSION: 3.4 cm right Hepatic cyst. Otherwise, unremarkable abdominal ultrasound. Lumbar Spine CT 06/17/19 00:00 IMPRESSION: 1. NO EVIDENCE OF ACUTE BONY ABNORMALITY OF THE LUMBAR SPINE. 2. MINIMAL GRADE 1 RETROLISTHESIS OF L1 ON L2. 3. 6 [id number] LUMBAR VERTEBRAL BODIES. PARTIAL SACRALIZATION OF THE L6 VERTEBRAL BODY WITH PSEUDOARTHROSIS ON THE RIGHT AND ASSOCIATED DEGENERATIVE CHANGE. Skeletal Survey 06/17/19 00:00 IMPRESSION: No worrisome bone lesions. Anterolisthesis of L5 on S1. Plan Time Spent: Greater than 30 Minutes - Finish 10 more days course of the Cipro total of patient's received the more than 4 days IV antibiotics Stroke Is this a Stroke Patient?: No Acute Heart Failure - Is this a Heart Failure Patient?: No
[2019-06-20 16:36] LABS: FREE KAPPA LIGHT CHAINS 26.9 mg/L (3.3-19.4); FREE LAMBDA LIGHT CHAINS 20.2 mg/L (5.7-26.3)
[2019-06-20 16:36] LABS: ALBUMIN UR 69.8 % (.); ALPHA-1-GLOBULIN URINE 4.2 % (.); ALPHA-2-GLOBULIN URINE 4.6 % (.); GAMMA GLOBULIN URINE 10.6 % (.); M-SPIKE % UR Not Observed % (Not Observ); PROTEIN TOTAL URINE 17.8 mg/dL (Not Estab.)
[2019-06-21 07:02] LABS: KAPPA LAMBDA RATIO 1.33 (0.26-1.65)
[2019-06-22 15:36] LABS: A/G RATIO. 1.4 (0.7-1.7); ALPHA-1-GLOBULIN 0.2 g/dL (0.0-0.4); BETA GLOBULIN 0.8 g/dL (0.7-1.3); GAMMA GLOBULINS 0.6 g/dL (0.4-1.8); IMMUNOGLOBULIN A 130 mg/dL (87-352); IMMUNOGLOBULIN G 847 mg/dL (700-1600); IMMUNOGLOBULIN M 90 mg/dL (26-217); MONOCLONAL-SPIKE Not Observed g/dL (Not Observ); PROTEIN TOTAL SERUM 5.3 g/dL (6.0-8.5)
== END 2019-06-20 12:30 | disposition home or self-care (01) | DRG 690 ==
LOC: 4N 15:02 → OBSVTOIN 15:54
PROVIDERS: ADMIT Family Medicine; ATTEND Family Medicine
DX: N10 Acute pyelonephritis (principal); N17.9 Acute kidney failure, unspecified
CPT/HCPCS: 36415; 72131; 76700; 77075; 80048; 80053; 81001; 83735; 83883; 84166; 85025; 86320; 87040; 87086; 87088; 87186; 93976; J0696; J0713; J2405; J7030; J7060

== ENCOUNTER → 2019-06-16 | Outpatient (CLI) | payer BC ==
--- NOTE | 2019-06-16 11:35 | RADIOLOGY REPORT (SQ) ---
EXAM DESCRIPTION: CT ABD/PELVIS NO ORAL OR IV COMPLETED DATE/TIME: 06/16/2019 10:44 am REASON FOR STUDY: R10.9 UNSPECIFIED ABDOMINAL PAIN, R31.9 HEMATURIA, UNSPECIFIED R10.9 UNSPECIFIED ABDOMINAL PAIN R31.9 HEMATURIA, UNSPECIFIED COMPARISON: 08/03/2013 TECHNIQUE: CT scan of the abdomen and pelvis performed without intravenous or oral contrast. Images reviewed with lung, soft tissue, and bone windows. Reconstructed coronal and sagittal MPR images revi ewed. All images stored on PACS. All CT scanners at this facility use dose modulation, iterative reconstruction, and/or weight based d osing when appropriate to reduce radiation dose to as low as reasonably achievable (ALARA). [facility]: Dose Right [facility]: CareDose [facility]: Dose Right [facility]: Teradose 4D [facility]: Smart [employer] RADIATION DOSE: CT Rad equipment meets quality standard of care and radiation dose reduction techniq ues were employed. CTDIvol: 4.0 mGy. DLP: 199 mGy-cm.mGy. LIMITATIONS: None. FINDINGS: LOWER CHEST: No significant findings. No nodules or infiltrates. NON-CONTRASTED LIVER, SPLEEN, ADRENALS: Evaluation limited by lack of IV contrast. No identified sign ificant masses. Right lobe hepatic cyst is again noted. PANCREAS: No masses. No peripancreatic inflammatory changes. GALLBLADDER: No identified stones by CT criteria. No inflammatory changes to suggest cholecystitis. RIGHT KIDNEY AND URETER: No suspicious masses. Assessment limited by lack of IV contrast. No signif icant calcifications. No hydronephrosis or hydroureter. LEFT KIDNEY AND URETER: No suspicious masses. Assessment limited by lack of IV contrast. No signifi cant calcifications. No hydronephrosis or hydroureter. AORTA AND RETROPERITONEUM: No aneurysm. No retroperitoneal masses or adenopathy. BOWEL AND PERITONEAL CAVITY: No obvious masses or inflammatory changes. No free fluid. APPENDIX: Surgically absent. PELVIS, BLADDER, AND ABDOMINAL WALL:No abnormal masses. No free fluid. Bladder normal. BONES: No significant findings. OTHER: No other significant finding. IMPRESSION: NO SIGNIFICANT OR ACUTE PROCESS IN THE ABDOMEN OR PELVIS. COMMENT: Quality ID # [id number]: Final reports with documentation of one or more dose reduction techniques (e.g., Automated exposure control, adjustment of the mA and/or kV according to patient size, use of iterative reconstruction technique) TECHNICAL DOCUMENTATION: JOB ID: [id number] [employer]- All Rights Reserved Reading location - IP/workstation name: [email or web address]
== END ==
LOC: RAD 10:15
PROVIDERS: ATTEND Family Medicine
DX: R10.9 Unspecified abdominal pain (principal); R31.9 Hematuria, unspecified
CPT/HCPCS: 74176

== ENCOUNTER → 2019-06-16 | Outpatient (CLI) | payer BC ==
[2019-06-16 11:45] LABS: ABSOLUTE MONOCYTES (AUTO) 0.6 10^3/uL (0.1-1.4); ABSOLUTE NEUT (AUTO) 8.3 10^3/uL (1.7-8.2); BASOPHILS % (AUTO) 0.3 % (0-2); EOSINOPHILS % (AUTO) 0.3 % (0-6); HEMATOCRIT 41.3 % (36.0-47.0); HEMOGLOBIN 13.9 g/dL (12.0-15.5); LYMPHOCYTES % (AUTO) 10.1 % (13-45); MEAN CORPUSCULAR HEMOGLOBIN 29.6 pg (27.0-33.4); MEAN CORPUSCULAR HGB CONC 33.8 g/dL (32.0-36.0); MEAN CORPUSCULAR VOLUME 88 fl (80-97); MONOCYTES % (AUTO) 6.2 % (3-13); PLATELET COUNT 236 10^3/uL (150-450); RED CELL DISTRIBUTION WIDTH 12.5 % (11.5-14.0); SEGMENTED NEUTROPHILS % (AUTO) 83.1 % (42-78); TOTAL CELLS COUNTED % (AUTO) 100 %
[2019-06-16 12:00] LABS: ALKALINE PHOSPHATASE 84 U/L (38-126); ANION GAP 13 (5-19); ASPARTATE AMINO TRANSFERASE 36 U/L (14-36); BILIRUBIN,DIRECT 0.2 mg/dL (0.0-0.4); BILIRUBIN,TOTAL 0.6 mg/dL (0.2-1.3); BLOOD UREA NITROGEN 27 mg/dL (7-20); CALCIUM 9.5 mg/dL (8.4-10.2); CARBON DIOXIDE 21 mmol/L (22-30); CHLORIDE 106 mmol/L (98-107); GLUCOSE 94 mg/dL (75-110); POTASSIUM 4.2 mmol/L (3.6-5.0); TOTAL PROTEIN 7.2 g/dL (6.3-8.2)
== END ==
LOC: OD 10:56
PROVIDERS: ATTEND Family Medicine
DX: R10.9 Unspecified abdominal pain (principal)
CPT/HCPCS: 36415; 80053; 85025

== ENCOUNTER → 2019-09-05 | Outpatient (CLI) | payer BC ==
--- NOTE | 2019-09-05 11:56 | RADIOLOGY REPORT (SQ) ---
EXAM DESCRIPTION: U/S RETROPERITON (RENAL/AORTA) COMPLETED DATE/TIME: 09/05/2019 11:32 am REASON FOR STUDY: RIGH FLANK PAIN R10.9 UNSPECIFIED ABDOMINAL PAIN COMPARISON: CT of the abdomen and pelvis without contrast from 06/16/2019. TECHNIQUE: Dynamic and static grayscale images acquired of the kidneys and bladder and recorded on P ACS. Additional selected color Doppler and spectral images recorded. LIMITATIONS: None. FINDINGS: RIGHT KIDNEY: The right kidney measures 10.1 cm in length. The echotexture of the renal p arenchyma is normal. There is no hydronephrosis, calcification or mass. LEFT KIDNEY: The left kidney measures 9.1 cm in length. The echotexture of the renal parenchymal is normal. There is no hydronephrosis, calcification or mass. BLADDER: No masses. OTHER FINDINGS: No other finding. IMPRESSION: No abnormality of the kidneys and urinary bladder. TECHNICAL DOCUMENTATION: JOB ID: [id number] 2010 [employer]- All Rights Reserved Reading location - IP/workstation name: [email or web address]
== END ==
LOC: RAD 10:25
PROVIDERS: ATTEND Family Medicine
DX: R10.9 Unspecified abdominal pain (principal)
CPT/HCPCS: 76770

== ENCOUNTER → 2019-09-08 | Outpatient (CLI) | payer BC ==
--- NOTE | 2019-09-09 10:25 | WOMENS IMAGING REPORT ---
EXAM DESCRIPTION: BILAT SCREENING MAMMO W/CAD COMPLETED DATE/TIME: 09/08/2019 12:53 pm REASON FOR STUDY: Z12.31 SCREENING MAMMO Z12.31 ENCNTR SCREEN MAMMOGRAM FOR MALIGNANT NEOPLASM OF B RE COMPARISON: Multiple since 2010 EXAM PARAMETERS: Standard craniocaudal and mediolateral oblique views of each breast recorded using digital acquisition. Read with the assistance of CAD. .[facility] - [employer] Version 9.2 LIMITATIONS: None. FINDINGS: No suspicious masses, suspicious calcifications or architectural distortion. No areas of c oncern. IMPRESSION: Negative MAMMOGRAM. BIRADS 1 BREAST DENSITY: b. There are scattered areas of fibroglandular density. BIRAD: ASSESSMENT: 1 NEGATIVE RECOMMENDATION: ROUTINE SCREENING Please continue yearly bilateral screening mammography/tomosynthesis in August 2020 COMMENT: The patient has been notified of the results by letter per [place] requirements. Additional no tification policies are in place for contacting patient with suspicious or incomplete findings. Quality ID #[id number]: [employer] recommends an annual screening mammogram for women aged 40 years or over. This facility utilizes a reminder system to ensure that all patients receive reminder letters, and/or direct phone calls for appointments. This includes reminders for routine scr eening mammograms, diagnostic mammograms, or other Breast Imaging Interventions when appropriate. Th is patient will be placed in the appropriate reminder system. TECHNICAL DOCUMENTATION: FINDING NUMBER: (1) ASSESSMENT: (1) JOB ID: [id number] 2010 [employer]- All Rights Reserved Reading location - IP/workstation name: [email or web address]
== END ==
LOC: WI 12:35
PROVIDERS: ATTEND Family Medicine
DX: Z12.31 Encounter for screening mammogram for malignant neoplasm of breast (principal)
CPT/HCPCS: 77067